=== PATIENT | male | born 1950 | race Caucasian/White ===

== ENCOUNTER 2017-09-28 10:45 | Emergency (ER) | payer MEDICARE ==
--- NOTE | 2017-09-28 11:09 | C.PDOC ---
History Of Present Illness 67 y/o male with PMHx of HTN, reportedly stopped taking medications per his own decision, presents to ED with c/o abdominal pain for 3 days. Patient describes pain to LLQ, constant, sharp, and non-radiating; states pain worsens with palpation. Denies fever, vomiting, diarrhea, dysuria. Patient reports normal BM this morning. Patient notes he began having nosebleeds from the left nostril 3x this morning, and states he would have come to the ER for abdominal pain even if he did not have nosebleed. Denies trauma or injury to nose. Denies spitting up blood. Denies chest pain, SOB, or palpitations. Time Seen by Provider: 09/28/17 10:52 Chief Complaint (Nursing): Abdominal Pain History Per: Patient History/Exam Limitations: no limitations Onset/Duration Of Symptoms: Days Current Symptoms Are (Timing): Still Present Location Of Pain/Discomfort: LLQ Radiation Of Pain To:: None Quality Of Discomfort: Sharp, "Pain" Associated Symptoms: denies: Fever, Chills, Nausea, Vomiting, Diarrhea, Urinary Symptoms Recent travel outside of the [place]: No Past Medical History Reviewed: Historical Data, Nursing Documentation, Vital Signs Vital Signs: Last Vital Signs Temp 98.2 F 09/28/17 13:15 Pulse 73 09/28/17 13:15 Resp 18 09/28/17 13:15 BP 151/89 H 09/28/17 13:15 Pulse Ox 99 09/28/17 13:20 - Medical History PMH: HTN Family History: States: Unknown Family Hx - Social History Hx Alcohol Use: No Hx Substance Use: No Review Of Systems Except As Marked, All Systems Reviewed And Found Negative. Constitutional: Negative for: Fever, Chills ENT: Positive for: Other (epistaxis) Cardiovascular: Negative for: Chest Pain Respiratory: Negative for: Cough, Shortness of Breath, Wheezing Gastrointestinal: Positive for: Abdominal Pain. Negative for: Nausea, Vomiting , Diarrhea Skin: Negative for: Rash Neurological: Negative for: Headache, Dizziness Physical Exam - Physical Exam Additional Physical Exam Comments: Constitutional: No acute distress. Head: Normocephalic. Atraumatic. Eyes: PERRL. ENT: Moist mucous membranes. No septal hematoma, no active bleeding. No blood in pharynx. Neck: Supple. Cardiovascular: Regular rate. Radial pulse 2+ bilaterally. Chest: No tenderness. Respiratory: Clear to auscultation bilaterally. GI: Soft. LLQ tenderness. +Guarding. Nondistended. Back: No CVA tenderness. Musculoskeletal: No tenderness or swelling of extremities. Skin: No rash. Neurologic: Alert, no focal deficit. ED Course And Treatment - Laboratory Results Result Diagrams: 09/28/17 11:11 09/28/17 11:11 O2 Sat by Pulse Oximetry: 99 (RA) Pulse Ox Interpretation: Normal Medical Decision Making Medical Decision Making: PLAN: * CT Abd/pelvis * Labs * Reassess CT IMPRESSION: Diverticulosis. Inflammatory stranding noted within the left lower quadrant suspected secondary to acute diverticulitis. Diverticulum involving the posterior right aspect of the urinary bladder with calcifications noted both in the diverticulum as well as within the dependent portion of the urinary bladder. Indeterminate 2.3 cm right hepatic lobe hypodense lesion. Additional smaller 5 mm hypodense lesion noted within the right hepatic lobe. Suggest ultrasound or dedicated cross-sectional imaging further evaluation. Additional findings as above. Patient in no distress, did not want pain medication, no vomiting, afebrile, no leukocytosis. Patient offered admission for IV antibiotics but he refused. Also offered nasal packing but he refused that as well. Discharged home, f/u PMD, instructed to return to ED immediately for worsening pain, fever, vomiting, dyspnea, nosebleed that will not stop, chest pain, palpitations, lightheadedness. Disposition - Disposition Disposition: HOME/ ROUTINE Disposition Time: 13:18 Condition: GOOD Prescriptions: Docusate [Colace] 100 mg PO BID #30 cap levoFLOXacin [Levaquin] 1 tab PO DAILY #10 tab Metronidazole [Flagyl] 500 mg PO Q8 #30 tab Instructions: Diverticulitis (ED), Nosebleed (ED) Forms: [employer] (French) - Clinical Impression Clinical Impression: Diverticulitis, Epistaxis - Scribe Statement The provider has reviewed the documentation as recorded by the Scribe SM All medical record entries made by the Scribe were at my direction and personally dictated by me. I have reviewed the chart and agree that the record accurately reflects my personal performance of the history, physical exam, medical decision making, and the department course for this patient. I have also personally directed, reviewed, and agree with the discharge instructions and disposition.
[2017-09-28 11:23] LABS: HEMATOCRIT 43.3 % (35.0-51.0)
[2017-09-28 11:24] LABS: BASO % 0.4 % (0.0-2.0); EOS # 0.1 K/uL (0.0-0.7); EOS % 1.2 % (0.0-4.0); LYMPH # 1.7 K/uL (1.0-4.3); LYMPH % 18.5 % (20.0-40.0); MEAN CELL VOLUME 92.3 fL (80.0-94.0); MEAN CORPUSCULAR HEMOGLOBIN 32.2 pg (27.0-31.0); MEAN CORPUSCULAR HGB CONC 34.9 g/dL (33.0-37.0); MEAN PLATELET VOLUME 9.2 fL (7.2-11.7); MONO # 0.8 K/uL (0.0-0.8); NRBC % 0.1 % (0.0-2.0)
[2017-09-28 11:28] LABS: INR 1.2
[2017-09-28 11:33] LABS: ALKALINE PHOSPHATASE 90 U/L (38-126); ALT/SGPT 72 U/L (21-72); AST/SGOT 37 U/L (17-59); BILIRUBIN,TOTAL 0.9 mg/dL (0.2-1.3); BLOOD UREA NITROGEN 19 mg/dL (9-20); CALCIUM 8.8 mg/dl (8.6-10.4); CARBON DIOXIDE 28 mmol/L (22-30); CHLORIDE 98 mmol/L (98-107); GFR AFRICAN-AMERICAN > 60; GLUCOSE,RANDOM 98 mg/dL (75-110); POTASSIUM 3.6 mmol/L (3.6-5.2); SODIUM 136 mmol/L (132-148); TOTAL PROTEIN 8.6 g/dL (6.3-8.3)
[2017-09-28 11:35] LABS: ALB/GLOB RATIO 1.1 (1.0-2.1)
[2017-09-28] MEDS ORDERED: Iodixanol 320 MG/ML 100 ML BOTTLE IV ONE (11:53)
[2017-09-28 12:59] LABS: RBC URINE 1 /hpf (0-3); URINE BILIRUBIN NEGATIVE (NEGATIVE); URINE BLOOD NEGATIVE (NEGATIVE); URINE COLOR Yellow (YELLOW); URINE GLUCOSE (UA) NORMAL (Normal); URINE KETONE NEGATIVE (NEGATIVE); URINE LEUKOCYTE ESTERASE NEG Leu/uL (Negative); URINE PROTEIN NEGATIVE (NEGATIVE); URINE UROBILINOGEN NORMAL mg/dL (0.2-1.0); WBC URINE < 1 /hpf (0-5)
--- NOTE | 2017-09-28 13:02 | CT ---
PROCEDURE: CT Abdomen and Pelvis with contrast HISTORY: LLQ tenderness COMPARISON: None available TECHNIQUE: Contrast dose: 100 cc Visipaque 320 Radiation dose: Total exam DLP = 454.82 mGy-cm. This CT exam was performed using one or more of the following dose reduction techniques: Automated exposure control, adjustment of the mA and/or kV according to patient size, and/or use of iterative reconstruction technique. FINDINGS: LOWER THORAX: No focal consolidation. No pleural effusion. No pneumothorax. LIVER: Indeterminate 2.3 cm right hepatic lobe hypodense lesion. Additional smaller 5 mm hypodense lesion noted within the right hepatic lobe. GALLBLADDER AND BILE DUCTS: Unremarkable. PANCREAS: Unremarkable. SPLEEN: Unremarkable. ADRENALS: Unremarkable. KIDNEYS AND URETERS: The kidneys enhance symmetrically. No hydronephrosis or obstructing calculus identified. VASCULATURE: No aortic aneurysm. BOWEL: Stomach is nondistended. Lack of oral contrast limits evaluation for bowel pathology. Bowel loops appear within normal limits of caliber without evidence of obstruction. Diverticulosis. Inflammatory stranding noted within the left lower quadrant suspected secondary to acute diverticulitis. APPENDIX: The appendix appears within normal limits of caliber. No secondary signs of acute appendicitis. PERITONEUM: No significant free fluid. No definite free air. LYMPH NODES: No bulky adenopathy identified. BLADDER: Diverticulum involving the posterior right aspect of the urinary bladder with calcifications noted both in the diverticulum as well as within the dependent portion of the urinary bladder. REPRODUCTIVE: The prostate gland measures approximately 3.9 x 6.2 cm. BONES: Degenerative changes. OTHER FINDINGS: Small left fat containing inguinal hernia. IMPRESSION: Diverticulosis. Inflammatory stranding noted within the left lower quadrant suspected secondary to acute diverticulitis. Diverticulum involving the posterior right aspect of the urinary bladder with calcifications noted both in the diverticulum as well as within the dependent portion of the urinary bladder. Indeterminate 2.3 cm right hepatic lobe hypodense lesion. Additional smaller 5 mm hypodense lesion noted within the right hepatic lobe. Suggest ultrasound or dedicated cross-sectional imaging further evaluation. Additional findings as above.
[2017-09-28 13:16] VITALS: BP 151/89; PULSE 73; RESP 18; TEMP 98.2
[2017-09-28 13:20] VITALS: O2SAT 99
== END 2017-09-28 13:38 | disposition home or self-care (01) ==
LOC: C.ER 10:45
DX: K57.92 Diverticulitis of intestine, part unspecified, without perforation or abscess without bleeding (principal); R04.0 Epistaxis; I10 Essential (primary) hypertension
CPT/HCPCS: 74177; 80053; 81001; 83690; 85025; 85610; 85730; 99285; Q9967